=== PATIENT | male | born 1980 | race Caucasian/White ===

== ENCOUNTER 2019-09-10 16:49 | Emergency (ER) | payer OTHER ==
[2019-09-10] MEDS ORDERED: PROPARACAINE HCL OPTH 15ML BTL OPTH ONE (17:25)
--- NOTE | 2019-09-10 17:38 | Emergency Department Record ---
History of Present Illness - General Chief complaint: Eye Problem Stated complaint: FEVER,PINK EYE DX Time Seen by Provider: 09/10/19 17:16 Source: Patient Mode of Arrival: Ambulatory Limitations: No limitations - History of Present Illness Initial comments: The patient is here due to a very red and irritated L eye for about 3 days. He did have pain in front of his L ear 2-3 days ago but that is improved. The patient also for the last 2 days has had a cough, low grade fever and congestion. He has been using eye drops on the L eye but they are not helping. The patient denies any eye pain, contact lense use, significant blurred vision, [place] or ST. He did get a flu shot this year. chief complaint: Eye redness Onset/Timin -: Week(s) Onset Description: Gradual Location: Left eye Eye Symptoms: Blurry vision, Discharge, Redness Consistency: Constant - Related Data Home Medications Medication Instructions Recorded Confirmed Last Taken Gentamicin Sulfate 1 drop AFFEYE Q4HR 09/10/19 09/10/19 09/10/19 Allergies Allergy/AdvReac Type Severity Reaction Status Date / Time No Known Drug Allergies Allergy Verified 09/10/19 16:54 Travel Screening - Travel/Exposure Within Last 30 Days Have you traveled within the last 30 days?: No - Travel/Exposure Within Last Year Have you traveled outside the [place] in the last year?: Yes Location Detail:: [place] - Additonal Travel Details Have you been exposed to anyone with a communicable illness?: No - Travel Symptoms Symptom Screening: None Review of Systems Constitutional: Reports: Fever, Malaise. Denies: Chills Eyes: Reports: Eye discharge. Denies: Eye pain, Photophobia ENT: Reports: Congestion Respiratory: Reports: Cough. Denies: Dyspnea Past Medical History - SOCIAL HISTORY Smoking Status: Never smoker Alcohol Use: None Drug Use: None - RESPIRATORY Hx Respiratory Disorders: No - CARDIOVASCULAR Hx Cardio Disorders: No - NEURO Hx Neuro Disorders: No - GI Hx GI Disorders: No - Hx Genitourinary Disorders: No - ENDOCRINE Hx Endocrine Disorders: No - MUSCULOSKELETAL Hx Musculoskeletal Disorders: No - PSYCH Hx Psych Problems: No - HEMATOLOGY/ONCOLOGY Hx Hematology/Oncology Disorders: No Family Medical History Any Significant Family History?: Yes Hx Dementia: Father Hx Diabetes: Father Hx Heart Disease: Father Physical Exam - General General Appearance: Alert, Oriented x3, Cooperative, No acute distress - Head Head exam: Atraumatic, Normocephalic, Normal inspection - Eye Eye exam: PERRL, Conjunctival injection (mod to severe L eye only. ), EOMI, Other (The L cornea is clear and without flourescein uptake. There is a tender L pre-auricular node.). negative: Normal appearance, Periorbital swelling, Periorbital tenderness - ENT ENT exam: Normal exam, Mucous membranes moist, Normal external ear exam, Normal orophraynx, TM's normal bilaterally Throat exam: Normal inspection. negative: Tonsillar erythema, Tonsillar exudate - Neck Neck exam: Normal inspection, Full ROM. negative: Lymphadenopathy, Meningismus, Tenderness - Respiratory Respiratory exam: Normal lung sounds bilaterally. negative: Respiratory distress - Cardiovascular Cardiovascular Exam: Regular rate, Normal rhythm, Normal heart sounds - Extremities Extremities exam: Normal inspection, Full ROM, Normal capillary refill. negative: Tenderness Course Vital Signs 09/10/19 16:56 Temperature 98.3 F Pulse Rate 87 Respiratory 18 Rate Blood Pressure 139/90 Pulse Ox 98 - Reevaluation(s) Reevaluation #1: The patient is doing very well at this time. I did explain to the patient and that I do feel he has Epidemic Keratoconjunctivitis most likely due to an Adenoviral infection. I also think the Adenovirus is also what is causing his URI. The patient is to stop the drops and start the eye ointment and see his PCP AND and eye doctor later this week. 09/10/19 18:14 Disposition Disposition: Discharge Clinical Impression: EKC (epidemic keratoconjunctivitis) Disposition: Home, Self-Care Condition: (2) Stable Instructions: Conjunctivitis (ED) Additional Instructions: Please use Tylenol and Motrin for fever and use an OTC cough and cold medicine. Use the Emycin opthalmic ointment to the L eye 4 times a day for 5-7 days. Please see your family doctor if not better in 3 days and also see an eye doctor later this week. Return to the ER for any worsening symptoms. Forms: Patient Portal Access Time of Disposition: 18:12 Quality - Quality Measures Quality Measures: N/A - Blood Pressure Screening View Details: Yes Does Patient Have Any of the Following: No Blood Pressure Classification: Hypertensive Reading Systolic Measurement: 139 Diastolic Measurement: 90 Screening for High Blood Pressure: < First Hypertensive BP, F/U Documented > [[id number]] First Hypertensive Follow-up Interventions: Referral to alternative/primary care provider.
[2019-09-10 17:54] LABS: INFLUENZA A NEGATIVE (NEGATIVE); INFLUENZA B NEGATIVE (NEGATIVE)
[2019-09-10] MEDS ORDERED: ERYTHROMYCIN OPTH OINT 3.5GM OPTH ONE (17:54)
--- NOTE | 2019-09-10 18:04 | RADIOLOGY REPORT ---
EXAMINATION: Two View Chest Radiographs EXAM DATE: 09/10/2019 5:57 PM TECHNIQUE: Frontal and lateral views INDICATION: cough COMPARISON: None ENCOUNTER: Not applicable FINDINGS: The heart, mediastinum, and pulmonary vasculature are normal. No lung consolidation or pleural effu sions are present. IMPRESSION: Normal chest. Dictated by: Art Summers MD on 09/10/2019 6:03 PM. .
== END 2019-09-10 18:19 | disposition home or self-care (01) ==
LOC: ER 16:49
DX: B30.0 Keratoconjunctivitis due to adenovirus (principal); R05 Cough
CPT/HCPCS: 71046; 87400; 99283